=== PATIENT | female | born 1990 | race Caucasian/White ===

== ENCOUNTER 2018-04-16 05:40 | Emergency (ER) | payer OTHER ==
[~2018-04-16] VITALS: Ht 165.1 cm; Wt 143.3 kg
[~2018-04-16 05:40] MED LIST: CYCLOPENTOLA1 %/2 M1 OP; NORCO 5-325 TA1 EACH PO; TOBREX5 ML OP
[2018-04-16] MEDS ORDERED: IMPLANON (05:56)
[2018-04-16] MEDS ORDERED: IBUPROFEN 800800 MG PO (09:26)
[2018-04-16] MEDS ORDERED: ZOFRAN ODT4 MG PO (09:26)
[2018-04-16] MEDS ORDERED: TORADOL 10 MG T10 MG PO (09:26)
[2018-04-16 09:36] VITALS: BP 118/80
== END 2018-04-16 09:36 | disposition home or self-care (01) ==
LOC: M.ERS 05:40
DX: R51 Headache (principal); R42 Dizziness and giddiness